=== PATIENT | female | born 1945 ===

== ENCOUNTER 2019-01-14 13:52 | Emergency (ER) | payer BC ==
[2019-01-14] MEDS ORDERED: Ketorolac 30 MG/ML SDV IM ONE (14:59)
--- NOTE | 2019-01-14 15:08 | EDM.PDOC ---
ED HPI GENERAL MEDICAL PROBLEM - General Chief Complaint: Lower Extremity Injury/Pain Stated Complaint: RIGHT HIP PAIN Time Seen by Provider: 01/14/19 14:38 Source of Information: Reports: Patient History Limitations: Reports: No Limitations - History of Present Illness INITIAL COMMENTS - FREE TEXT/NARRATIVE: HISTORY AND PHYSICAL: History of present illness: Patient is a 73-year-old female who presents to the ED today with concern of right hip pain since Friday. Patient states that she went to go corn picker her granddaughter from the bed and felt a popping sensation on the outer right hip. Patient states that she's had some mild pain since Friday of the hip but today the pain has increased and she is having a harder time walking due to pain. Patient states that she does have crutches at home that she's been using and took 1 tramadol earlier today with mild relief of symptoms. She denies any other symptoms or concerns. Patient denies fever, chills, chest pain, shortness of breath, or cough. Denies headache, neck stiff ness, change in vision, syncope, or near syncope. Denies nausea, vomiting, abdominal pain, diarrhea, constipation, or dysuria. Has not noted any blood in urine or stool. Patient has been eating and drinking appropriately. Review of systems: As per history of present illness and below otherwise all systems reviewed and negative. Past medical history: As per history of present illness and as reviewed below otherwise noncontributory. Surgical history: As per history of present illness and as reviewed below otherwise noncontributory. Social history: See social history for further information Family history: As per history of present illness and as reviewed below otherwise noncontributory. Physical exam: General: Patient is alert, oriented, and in no acute distress. Patient sitting comfortably on exam table. HEENT: Atraumatic, normocephalic, pupils equal and reactive bilaterally, negative for conjunctival pallor or scleral icterus, mucous membranes moist, TMs normal bilaterally, throat clear, neck supple, nontender, trachea midline. No drooling or trismus noted. No meningeal signs. No hot potato voice noted. Lungs: Clear to auscultation, breath sounds equal bilaterally, chest nontender. Heart: S1S2, regular rate and rhythm without overt murmur Abdomen: Soft, nondistended, nontender. Negative for masses or hepatosplenomegaly. Negative for costovertebral tenderness. Pelvis: Stable nontender. Genitourinary: Deferred. Rectal: Deferred. Skin: Intact, warm, dry. No lesions or rashes noted. Extremities: Atraumatic, negative for cords or calf pain. Neurovascular unremarkable. No obvious deformity of the complete right extremity. Patient has full range of motion with flexion and extension of the right hip but does have limited range of motion with lateral movement of the right hip due to pain and discomfort. There is no erythema or edema of the right hip. Patient does have pain with palpation of the lateral upper femur. Patient has full range of motion of the right knee ankle and digits without pain or difficulty. Dorsalis pedis and posterior tibial pulses are grossly intact of the right lower extremity with capillary refill less than 2 seconds. Neuro: Awake, alert, oriented. Cranial nerves II through XII unremarkable. Cerebellum unremarkable. Motor and sensory unremarkable throughout. Exam nonfocal. Notes: Discussed the importance for follow-up with an orthopedic provider. Voices understanding and is agreeable to plan of care. Denies any further questions or concerns at this time. Diagnostics: Hip with pelvic x-ray Therapeutics: Toradol Prescription: Diclofenac, Flexeril Impression: Right hip pain Plan: 1. Rest, ice, elevate the affected extremity. You can apply ice 15 minutes on, 15 minutes off. 2. Tylenol as directed for pain management or discomfort. Take medication as prescribed. 3. Follow up with the Orthopedic provider as discussed. Return to the ED as needed and as discussed. Definitive disposition and diagnosis as appropriate pending reevaluation and review of above. Right Hip Pain Score (Numeric/FACES): 10 - Related Data Allergies Allergy/AdvReac Type Severity Reaction Status Date / Time amoxicillin [Amoxicillin] Allergy Hives Verified 04/11/15 14:54 atorvastatin calcium Allergy Muscle Verified 04/11/15 14:54 [From Lipitor] Aches pregabalin [From Lyrica] Allergy Muscle Verified 04/11/15 14:54 Aches Home Meds: Home Meds oxyCODONE HCl/Acetaminophen [Percocet 5-325 mg Tablet] 1 tab PO Q8HR PRN [History] Furosemide 1 tab PO DAILY 08/17/14 [History] Isosorbide Mononitrate [Isosorbide Mononitrate ER] 30 mg PO PCDIN 08/17/14 [ History] Potassium Chloride 10 meq PO DAILY 08/17/14 [History] Promethazine [Phenergan] 1 tab PO ASDIRECTED 08/17/14 [History] traMADol HCl [Tramadol HCl] 1 tab PO ASDIRECTED PRN 08/17/14 [History] Aspirin [Ecotrin EC] 1 tab PO DAILY 04/11/15 [History] Ondansetron [Zofran ODT] 1 tab PO Q8H PRN 04/11/15 [History] Metoprolol Tartrate 12.5 mg PO DAILY 01/14/19 [History] Sertraline [Zoloft] 50 mg PO DAILY 01/14/19 [History] Past Medical History Cardiovascular History: Reports: Bypass (3 vessels in 2004), CAD, [place] (2003 and 2004), PTCA, Stents (2003) Other Cardiovascular History: "Stable Angina" 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 Musculoskeletal History: Reports: Fibromyalgia Other Musculoskeletal History: hx: fracturing arm Neurological History: Reports: CVA Other Neuro History: Typical headaches 'nothing chronic' - Infectious Disease History Infectious Disease History: Reports: Chicken Pox, Measles, Mumps - Past Surgical History Cardiovascular Surgical History: Reports: Coronary Artery Bypass, Coronary Artery Stent, Percutaneous Transluminal Angioplasty Other Female Surgeries/Procedures: Oophorectomy Social & Family History - Family History Family Medical History: Noncontributory Cardiac: Reports: Hypertension, [place] Oncologic: Reports: Colon Other Oncologic Family History: Father - Tobacco Use Smoking Status *Q: Former Smoker Used Tobacco, but Quit: Yes Month/Year Tobacco Last Used: 03/2004 - Recreational Drug Use Recreational Drug Use: No Review of Systems - Review of Systems Review Of Systems: Comprehensive ROS is negative, except as noted in HPI. ED EXAM, GENERAL - Physical Exam Exam: See Below (See dictation) Course - Vital Signs Last Recorded V/S: Last Vital Signs Temp 97.7 F 01/14/19 14:30 Pulse 67 01/14/19 14:30 Resp 18 01/14/19 14:30 BP 151/82 H 01/14/19 14:30 Pulse Ox 97 01/14/19 14:30 - Orders/Labs/Meds Meds: Medications Discontinued Medications Generic Name Dose Route Start Last Admin Trade Name Freq PRN Reason Stop Dose Admin Ketorolac Tromethamine 30 mg 01/14/19 14:59 01/14/19 15:09 Toradol IM 01/14/19 15:00 30 mg ONETIME ONE Administration Departure - Departure Time of Disposition: 16:22 Disposition: Home, Self-Care 01 Clinical Impression: Right hip pain - Discharge Information Referrals: Quinton Cullen MD [Primary Care Provider] - Forms: ED Department Discharge Additional Instructions: The following information is given to patients seen in the emergency department who are being discharged to home. This information is to outline your options for follow-up care. We provide all patients seen in our emergency department with a follow-up referral. The need for follow-up, as well as the timing and circumstances, are variable depending upon the specifics of your emergency department visit. If you don't have a primary care physician on staff, we will provide you with a referral. We always advise you to contact your personal physician following an emergency department visit to inform them of the circumstance of the visit and for follow-up with them and/or the need for any referrals to a consulting specialist. The emergency department will also refer you to a specialist when appropriate. This referral assures that you have the opportunity for follow-up care with a specialist. All of these measure are taken in an effort to provide you with optimal care, which includes your follow-up. Under all circumstances we always encourage you to contact your private physician who remains a resource for coordinating your care. When calling for follow-up care, please make the office aware that this follow-up is from your recent emergency room visit. If for any reason you are refused follow-up, please contact the [facility] Emergency Department at and asked to speak to the emergency department charge nurse. [facility] [address] [place] [address] [id number] [address] 1. Rest, ice, elevate the affected extremity. You can apply ice 15 minutes on, 15 minutes off. 2. Tylenol as directed for pain management or discomfort. Take medication as prescribed. 3. Follow up with the Orthopedic provider as discussed. Return to the ED as needed and as discussed.
--- NOTE | 2019-01-14 16:14 | CR ---
EXAM DATE: 01/14/19 PATIENT'S AGE: 73 Pelvis and right hip: AP view of the pelvis was obtained as well as AP and frog- leg lateral views the right hip. Slight cystic change is noted within the superior right femoral head and adjacent acetabulum. Joint space within both hips appear maintained. No fracture or other bony abnormality is seen. Diffuse soft tissue calcifications are seen which appear benign and likely due to injection granulomas. Impression: 1. Cystic change within the right hip believed to represent mild degenerative change. 2. AP pelvis and frog-leg lateral right hip exam is otherwise unremarkable. 3. Soft tissue calcifications which are felt to represent benign injection granulomas. Diagnostic code #2 Report Signed by Proxy. SHEELA
[2019-01-14 16:53] VITALS: BP 145/74; PULSE 54
== END 2019-01-14 16:53 | disposition home or self-care (01) ==
LOC: MW.ED 13:52
DX: M25.551 Pain in right hip (principal); Z87.891 Personal history of nicotine dependence; Z88.1 Allergy status to other antibiotic agents; Z88.8 Allergy status to other drugs, medicaments and biological substances; Z79.82 Long term (current) use of aspirin; Z79.899 Other long term (current) drug therapy
CPT/HCPCS: 73502; 96372; 99283; J1885; 99284

== ENCOUNTER 2019-10-29 08:08 | Emergency (ER) | payer BC ==
[2019-10-29] MEDS ORDERED: HYDROmorphone 1 MG/ML Syringe IVPUSH ONE (08:27)
[2019-10-29 08:31] VITALS: BP 159/63; PULSE 62
--- NOTE | 2019-10-29 08:35 | EDM.PDOC ---
ED HPI GENERAL MEDICAL PROBLEM - General Chief Complaint: Upper Extremity Injury/Pain Stated Complaint: WRIST INJURY Time Seen by Provider: 10/29/19 08:12 - History of Present Illness INITIAL COMMENTS - FREE TEXT/NARRATIVE: HPI: This 74-year-old female presents with fall from ground-level with outstretched hand Mechanism of injury: Ground level fall Time of Injury: 9 PM yesterday Reports that she tripped over her dog and fell on her outstretched right wrist. Denies any head trauma. No loss of consciousness. Has had a fall that occurred about a month ago and also struck her head. She said since then she has been ok ay. She does not endorse any loss of consciousness. Denies any other injuries at this point. Rates her pain as severe. Any movement or rotation is excruciating. No other associated signs or symptoms. No other modifying, aggravating or alleviating factors. ROS: A 10-point review of systems, other than pertinent positives and negatives as stated per HPI, is otherwise negative. Physical Exam: VITAL SIGNS: Reviewed. Pulse Oximetry reviewed and is interpreted as normal GENERAL: Appears to be in acute pain but not unstable HEAD: No signs of head trauma FACE: The facial bones are nontender to palpation. The mandible is nontender to palpation. The oropharynx is normal. There is no dental malocclusion. EYES: Pupils are equal. Extraocular motions intact. EARS: Hearing grossly intact. NOSE: Normal to internal and external inspection NECK: Supple. NEXUS Criteria for Imaging of C-Spine: Focal Neuro Deficit: No Spinal Midline Tenderness: No ALOC: No Intoxication: No Distracting Injury: Present C-Spine cannot be clinically cleared. Imaging Required. CHEST: Nontender to palpation. No crepitus, subcutaneous emphysema, or d iscoloration. LUNGS: Clear and equal breath sounds bilaterally. No wheezes, rales, or rhonchi. CARDIAC: Regular rate and rhythm. S1 and S2, without murmurs, gallops, or rubs. VASCULAR: No Edema. Peripheral pulses normal and equal in all extremities. ABDOMEN: Soft, without detectable tenderness. No sign of distention. No rebound or guarding, and no masses palpated. Bowel Sounds present. PELVIS: The pelvis is nontender to palpation. There is no tenderness with AP or lateral compression of the pelvis. BACK: The entire axial spine was palpated and there was no tenderness, deformity, or step-off. MUSCULOSKELETAL: There is significant deformity and ecchymosis to the right wrist. Distal neurovascular function is intact. Normal sensation to light touch. Pain with any range of motion especially rotation or attempted movement of the fingers. Some mild pain in the right elbow. NEUROLOGIC EXAM: Alert and oriented x 3. EYE 4 verbal 5 motor 6 no focal sensory or strength deficits. Speech normal. Follows commands. PSYCHIATRIC: Mood normal. SKIN: No rash. Initial Impression & Plan: 1. Obvious fracture/deformity of the right wrist. 2. Fall on Plavix 3. Right elbow pain Given the patient fell on Plavix it is our protocol at this facility to activate a trauma alert. This is been accomplished. The patient does not appear to be highly traumatized and is otherwise doing well. She slept in her bed and awoke this morning. High likelihood there is no underlying head injury however given fall on Plavix we will obtain a CT scan to look for occult injury. We will obtain x-rays of the wrist and elbow. She otherwise appears to be not injured. R wrist Pain Score (Numeric/FACES): 10 - Related Data Allergies Allergy/AdvReac Type Severity Reaction Status Date / Time amoxicillin [Amoxicillin] Allergy Hives Verified 10/29/19 08:23 atorvastatin calcium Allergy Muscle Verified 10/29/19 08:23 [From Lipitor] Aches pregabalin [From Lyrica] Allergy Muscle Verified 10/29/19 08:23 Aches Home Meds: Home Meds oxyCODONE HCl/Acetaminophen [Percocet 5-325 mg Tablet] 1 tab PO Q8HR PRN 03/30/14 [History] Furosemide 1 tab PO DAILY 08/17/14 [History] Isosorbide Mononitrate [Isosorbide Mononitrate ER] 30 mg PO PCDIN 08/17/14 [History] Potassium Chloride 10 meq PO DAILY 08/17/14 [History] Promethazine [Phenergan] 1 tab PO ASDIRECTED 08/17/14 [History] traMADol HCl [Tramadol HCl] 1 tab PO ASDIRECTED PRN 08/17/14 [History] Aspirin [Ecotrin EC] 1 tab PO DAILY 04/11/15 [History] Ondansetron [Zofran ODT] 1 tab PO Q8H PRN 04/11/15 [History] Cyclobenzaprine [Flexeril] 10 mg PO TID PRN #6 tab 01/14/19 [Rx] Diclofenac Sodium [Voltaren] 75 mg PO BIDMEALS PRN #10 tab.cr 01/14/19 [Rx] Metoprolol Tartrate 12.5 mg PO DAILY 01/14/19 [History] Sertraline [Zoloft] 50 mg PO DAILY 01/14/19 [History] Morphine 15 mg PO Q4H PRN 3 Days #7 tab 10/29/19 [Rx] Past Medical History Cardiovascular History: Reports: Bypass (3 vessels in 2004), CAD, [place] (2003 and 2004), PTCA, Stents (2003) Other Cardiovascular History: "Stable Angina" 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 Musculoskeletal History: Reports: Fibromyalgia Other Musculoskeletal History: hx: fracturing arm Neurological History: Reports: CVA Other Neuro History: Typical headaches 'nothing chronic' - Infectious Disease History Infectious Disease History: Reports: Chicken Pox, Measles, Mumps - Past Surgical History Cardiovascular Surgical History: Reports: Coronary Artery Bypass, Coronary Artery Stent, Percutaneous Transluminal Angioplasty Other Female Surgeries/Procedures: Oophorectomy Social & Family History - Family History Family Medical History: Noncontributory Cardiac: Reports: Hypertension, [place] Oncologic: Reports: Colon Other Oncologic Family History: Father Review of Systems - Review of Systems Review Of Systems: See Below (Obtained) ED EXAM, GENERAL - Physical Exam Exam: See Below (noted) ED TRAUMA EXTREMITY PROCEDURES - Additional/Other Procedure(s) Other (Free Text) Procedure(s): PROCEDURE: Fracture Care LOCATION AND FRACTURE TYPE: Distal radius INDICATION: Fracture ANESTHESIA: see separate note DETAILS: Normal and gentle inline traction was applied with return of normal anatomic alignment. SPLINTING PROCEDURE NOTE: Short arm volar COMPLICATIONS: None NEUROVASCULAR EXAM: intact both before and after procedure. Course - Vital Signs Last Recorded V/S: Last Vital Signs Temp 96.9 F 10/29/19 08:13 Pulse 62 10/29/19 08:13 Resp 20 10/29/19 08:13 BP 159/63 H 10/29/19 08:13 Pulse Ox 99 10/29/19 08:13 - Orders/Labs/Meds Orders: Active Orders 24 hr Category Date Time Status Splinting [RC] ASDIRECTED Care 10/29/19 09:00 Active Meds: Medications Discontinued Medications Generic Name Dose Route Start Last Admin Trade Name Freq PRN Reason Stop Dose Admin Hydromorphone HCl 1 mg 10/29/19 08:27 10/29/19 08:57 Dilaudid IVPUSH 10/29/19 08:28 1 mg ONETIME ONE Administration Departure - Departure Time of Disposition: 09:04 Disposition: Home, Self-Care 01 Clinical Impression: Distal radial fracture, Fall from ground level, On anticoagulant therapy, Fracture of radius - Discharge Information *PRESCRIPTION DRUG MONITORING PROGRAM REVIEWED*: Yes *COPY OF PRESCRIPTION DRUG MONITORING REPORT IN PATIENT JEVON: No Prescriptions: Morphine 15 mg PO Q4H PRN 3 Days #7 tab PRN Reason: Pain Instructions: Cast or Splint Care, Adult, [id number], Wrist Fracture Treated With Immobilization, [id number] Referrals: Quinton Cullen MD [Primary Care Provider] - Forms: ED Department Discharge Additional Instructions: The following information is given to patients seen in the emergency department who are being discharged to home. This information is to outline your options for follow-up care. We provide all patients seen in our emergency department with a follow-up referral. The need for follow-up, as well as the timing and circumstances, are variable depending upon the specifics of your emergency department visit. If you don't have a primary care physician on staff, we will provide you with a referral. We always advise you to contact your personal physician following an emergency department visit to inform them of the circumstance of the visit and for follow-up with them and/or the need for any referrals to a consulting specialist. The emergency department will also refer you to a specialist when appropriate. This referral assures that you have the opportunity for follow-up care with a specialist. All of these measure are taken in an effort to provide you with optimal care, which includes your follow-up. Thank you for coming to the [facility] urgency department for your care today. It was Dr. Kohler's pleasure to take care of you. [facility] - Orth[facility] Clinic Professional Building [address] [place] [address], [address] [place] [address] Please follow-up with Dr. Yates. He will be in clinic on Friday. Under all circumstances we always encourage you to contact your private physician who remains a resource for coordinating your care. When calling for follow-up care, please make the office aware that this follow-up is from your recent emergency room visit. If for any reason you are refused follow-up, please contact the [facility] Emergency Department at and asked to speak to the emergency department charge nurse. Sepsis Event Note (ED) - Evaluation Sepsis Screening Result: No Definite Risk - Focused Exam Vital Signs: Vital Signs Temp Pulse Resp BP Pulse Ox 10/29/19 08:13 96.9 F 62 20 159/63 H 99 - My Orders Last 24 Hours: My Active Orders 10/29/19 09:00 Splinting [RC] ASDIRECTED - Assessment/Plan Last 24 Hours: My Active Orders 10/29/19 09:00 Splinting [RC] ASDIRECTED
--- NOTE | 2019-10-29 08:52 | CT ---
CT cervical spine Technique: Multiple axial sections were obtained from both C1 inferiorly to the mid T4 level. Reconstructed sagittal and coronal images were obtained. Comparison: No prior cervical spine imaging is available. Findings: Mild spondylolisthesis is noted at C2-3 due to degenerative apophyseal change. Minimal spondylolisthesis is noted at C3-4 due to degenerative apophyseal change. Other degenerative apophyseal change is scattered throughout the cervical spine. Severe disc space narrowing is noted at C4-5, C5-6 and C6-7. Moderate disc space narrowing at C3-4 and C7-T1. Anterior osteophytes are noted throughout the cervical spine as well as posterior osteophytes noted at the C4-5 through C6-7 levels. Moderate right-sided neural foraminal stenosis is noted at C3-4. Moderate left-sided neural foraminal stenosis noted at C4-5. Severe left-sided neural foraminal stenosis is noted at C5-6 with moderate to severe right-sided neural foraminal stenosis at C5-6. Moderate to severe left-sided neural foraminal stenosis is noted at C6-7 with mild right-sided neural foraminal stenosis at C6-7. Other neural foramina appear fairly well patent. No fracture is appreciated. Impression: 1. Diffuse degenerative change as noted above. 2. No acute fracture is appreciated. Diagnostic code #2 This report was dictated in MDT
--- NOTE | 2019-10-29 08:53 | CT ---
Head CT Technique: Multiple axial sections through the brain were obtained. Intravenous contrast was not utilized. Comparison: No prior intracranial imaging is available. Findings: Diminished density is noted within portions of the posterior left frontal and parietal regions having the appearance of old infarcts. No other abnormal parenchymal densities are seen. No evidence of intracranial hemorrhage. No midline shift or mass-effect is seen. Ventricles along with basal cisterns and sulci over the convexities are mildly prominent. Bone window settings were reviewed. Visualized mastoid sinuses and visualized paranasal sinuses show nothing acute. No acute calvarial finding is seen. Impression: 1. Findings of old infarcts within the within the left posterior frontal and parietal regions. 2. Mild generalized atrophy. 3. No definite acute intracranial abnormality is appreciated. Diagnostic code #2 This report was dictated in MDT
--- NOTE | 2019-10-29 08:58 | CR ---
Right wrist: 3 views of the right wrist were obtained. Comparison: No prior wrist exam. Deformity of the distal radius is seen. This finding is most likely due to old healed fracture deformity. Please correlate with the patient's symptoms and history. Ununited fracture involving the ulnar styloid process is noted. Soft tissue swelling is noted. No definite acute fracture line is appreciated. Impression: 1. Probable old healed fracture deformity within distal radius as well as probable old ununited fracture within the ulnar styloid process. Please correlate with patient's history and patient's symptoms. 2. Mild soft tissue swelling is seen. 3. No acute bony abnormality is definitely appreciated. Diagnostic code #2 This report was dictated in MDT
--- NOTE | 2019-10-29 08:58 | CR ---
Right elbow: 3 views of the right elbow were obtained. Comparison: No previous elbow study is available. Mild joint space narrowing is noted within the elbow. No joint effusion is seen. No acute fracture or other bony abnormality is appreciated. Impression: 1. Mild joint space narrowing. 2. Nothing acute is appreciated on right elbow study. Diagnostic code #2 This report was dictated in MDT
== END 2019-10-29 09:34 | disposition home or self-care (01) ==
LOC: MW.ED 08:08
DX: S52.501A Unspecified fracture of the lower end of right radius, initial encounter for closed fracture (principal); S52.611A Displaced fracture of right ulna styloid process, initial encounter for closed fracture; Z79.01 Long term (current) use of anticoagulants; Z79.02 Long term (current) use of antithrombotics/antiplatelets; Z88.1 Allergy status to other antibiotic agents; Z88.8 Allergy status to other drugs, medicaments and biological substances; W01.0XXA Fall on same level from slipping, tripping and stumbling without subsequent striking against object, initial encounter
CPT/HCPCS: 25605; 70450; 72125; 73080; 73110; 96374; 99284; J1170; 29125; 99283